=== PATIENT | male | born 2000 | race Caucasian/White ===

== ENCOUNTER 2021-04-23 18:23 | Observation (INO) ==
[2021-04-23 19:26] LABS: Basophils % 0.1 %; Eosinophils # 0.1 K/mcL (0.0-0.6); Eosinophils % 0.8 %; Hematocrit 46.8 % (37.5-50.1); Hemoglobin 16.3 g/dL (12.9-16.9); Immature Granulocytes % 0.7 % (0-4); Lymphocytes # 1.4 K/mcL (0.6-4.6); Lymphocytes % 10.6 %; Mean Corpuscular HGB Conc 34.8 g/dL (31.6-35.5); Mean Corpuscular Hemoglobin 31.8 pg (28.0-33.3); Mean Corpuscular Volume 91.2 fL (83.0-100.0); Mean Platelet Volume 9.5 fL (9.4-12.4); Monocytes # 1.3 K/mcL (0.0-1.3); Monocytes % 9.5 %; Neutrophils # 10.5 K/mcL (1.6-8.9); Platelet Count 222 K/mcL (140-400); Red Blood Count 5.13 M/mcL (4.19-5.50); Red Cell Distribution Width 12.1 % (11.5-14.5); Segmented Neutrophils % 78.3 %; White Blood Count 13.4 K/mcL (4.3-11.1)
[2021-04-23 19:29] LABS: Bilirubin,Urine Negative (Negative); Blood,Urine Negative (Negative); Clarity,Urine Clear (Clear); Color,Urine Light-Orange (Yellow); Glucose,Urine (UA) 70 mg/dL (Normal); Ketones,Urine Negative (Negative); Leukocyte Esterase,Urine Trace (Negative); Mucus,Urine Few per lpf (None-Few); Nitrite,Urine Negative (Negative); Protein,Urine 30 mg/dL (Neg-Trace); RBC,Urine 0-3 per hpf (0-3); Specific Gravity,Urine 1.026 (1.010-1.025); Sperm,Urine Present per hpf (None Seen); Squamous Epithelial Cell,Urine Few per hpf (None-Few); Urobilinogen,Urine Normal (Normal)
[2021-04-23 19:36] LABS: Amphetamine Screen,Urine Positive ng/mL (Cutoff=1000); Barbiturate Screen,Urine Negative ng/mL (Cutoff=200); Benzodiazepines Screen,Urine Negative ng/mL (Cutoff=200); Cannabinoid Screen,Urine Negative ng/mL (Cutoff = 50); Cocaine Screen,Urine Negative ng/mL (Cutoff= 300); Opiate Screen,Urine Negative ng/mL (Cutoff=300); Phencyclidine Screen,Urine Negative ng/mL (Cutoff=25)
[2021-04-23 19:47] LABS: Alanine Aminotransferase 32 Units/L (7-52); Albumin 4.5 g/dL (3.5-5.7); Albumin/Globulin Ratio 1.6 (1.1-2.2); Alkaline Phosphatase 68 Units/L (34-104); Aspartate Amino Transferase 21 Units/L (13-39); BUN/Creatinine Ratio 12 (6-26); Bilirubin,Direct 0.3 mg/dL (0.0-0.2); Bilirubin,Indirect 0.9 mg/dL (0.0-1.0); Bilirubin,Total 1.2 mg/dL (0.3-1.0); Blood Urea Nitrogen 9 mg/dL (6-20); Calcium 9.7 mg/dL (8.6-10.3); Carbon Dioxide 27 mEq/L (23-29); Chloride 99 mEq/L (98-107); Ethanol < 10 mg/dL (Less than 10); Globulin 2.8 g/dL (2.4-3.5); Glucose 108 mg/dL (70-105); Lipase 14 Units/L (11-82); Osmolality,Calculated 275 (280-300); Potassium 4.3 mEq/L (3.5-5.1); Sodium 133 mEq/L (136-145); Total Protein 7.3 g/dL (6.4-8.9); eGFR For African Americans > 60 (> 60); eGFR For Non-African Americans > 60 (> 60)
[2021-04-23] MEDS ORDERED: Ketorolac 15 MG/ML VIAL IVP ONE (19:52)
[2021-04-23] MEDS ORDERED: *HR* Metoprolol 5 MG/5 ML VIAL IVP PRN (23:03)
[2021-04-23] MEDS ORDERED: *HR* OxyCODONE/APAP 5/325 TABLET PO PRN (23:03)
[2021-04-24] MEDS: Piperacillin/Tazobactam 3.375 GM in 0.9 % Sodium Chloride Mini Bag 100 ML IVPB SCH ×3 (00:03→17:14)
[2021-04-24] MEDS: 0.9 % Sodium Chloride 1,000 ML IVC SCH ×4 (00:04→20:37)
[2021-04-24 01:15] LABS: Basophils % 0.2 %; Eosinophils # 0.1 K/mcL (0.0-0.6); Eosinophils % 0.8 %; Hematocrit 43.5 % (37.5-50.1); Hemoglobin 14.8 g/dL (12.9-16.9); Immature Granulocytes % 0.7 % (0-4); Lymphocytes # 1.5 K/mcL (0.6-4.6); Lymphocytes % 12.9 %; Mean Corpuscular Hemoglobin 31.2 pg (28.0-33.3); Mean Corpuscular Volume 91.8 fL (83.0-100.0); Mean Platelet Volume 9.8 fL (9.4-12.4); Monocytes # 1.1 K/mcL (0.0-1.3); Monocytes % 9.6 %; Neutrophils # 9.1 K/mcL (1.6-8.9); Platelet Count 194 K/mcL (140-400); Red Blood Count 4.74 M/mcL (4.19-5.50); Red Cell Distribution Width 12.2 % (11.5-14.5); Segmented Neutrophils % 75.8 %; White Blood Count 11.9 K/mcL (4.3-11.1)
[2021-04-24 01:36] LABS: Alanine Aminotransferase 63 Units/L (7-52); Albumin 3.9 g/dL (3.5-5.7); Albumin/Globulin Ratio 1.3 (1.1-2.2); Alkaline Phosphatase 75 Units/L (34-104); Amylase 14 Units/L (29-103); Aspartate Amino Transferase 64 Units/L (13-39); BUN/Creatinine Ratio 12 (6-26); Bilirubin,Direct 0.6 mg/dL (0.0-0.2); Bilirubin,Indirect 0.9 mg/dL (0.0-1.0); Bilirubin,Total 1.5 mg/dL (0.3-1.0); Blood Urea Nitrogen 9 mg/dL (6-20); Calcium 9.1 mg/dL (8.6-10.3); Carbon Dioxide 26 mEq/L (23-29); Chloride 99 mEq/L (98-107); Globulin 2.9 g/dL (2.4-3.5); Glucose 114 mg/dL (70-105); Lipase 7 Units/L (11-82); Osmolality,Calculated 278 (280-300); Potassium 4.1 mEq/L (3.5-5.1); Sodium 134 mEq/L (136-145); Total Protein 6.8 g/dL (6.4-8.9); eGFR For African Americans > 60 (> 60); eGFR For Non-African Americans > 60 (> 60)
[2021-04-24] MEDS ORDERED: Ondansetron 4 MG/2 ML VIAL IVP PRN ×3 (06:32→10:50)
[2021-04-24] MEDS ORDERED: *HR* HYDROmorphone PF 0.5 MG/0.5 ML SYRINGE IVP PRN (06:32)
[2021-04-24] MEDS ORDERED: Isovue-300 50ML VIAL ONE (07:21)
[2021-04-24] MEDS ORDERED: Lidocaine -MPF 4% 5 ML AMPUL ONE (07:47)
[2021-04-24] MEDS ORDERED: *HR* FentaNYL (PF) 100 MCG/2 ML VIAL ONE (07:47)
[2021-04-24] MEDS ORDERED: Lidocaine -MPF 2% 5 ML VIAL ONE (07:47)
[2021-04-24] MEDS ORDERED: *HR* Propofol 200 MG/20 ML VIAL IVP ONE (07:47)
[2021-04-24] MEDS ORDERED: Ondansetron 4 MG/2 ML VIAL ONE (07:47)
[2021-04-24] MEDS ORDERED: *HR* Succinylcholine 200 MG/10 ML VIAL IVP ONE (07:47)
[2021-04-24] MEDS ORDERED: *HR* Midazolam HCl 2 MG/2 ML VIAL ONE (07:47)
[2021-04-24] MEDS ORDERED: *HR* Rocuronium Bromide 50 MG/5 ML VIAL ONE (07:51)
[2021-04-24] MEDS ORDERED: Albuterol 2.5 MG/3 ML NEBULIZER ONE (08:13)
[2021-04-24] MEDS ORDERED: *HR* Magnesium Sulfate 1 GM/2 ML VIAL ONE (08:54)
[2021-04-24] MEDS ORDERED: *HR* HYDROMORPHONE 2 MG/ML VIAL ONE (08:58)
[2021-04-24] MEDS ORDERED: *HR* FentaNYL (PF) 100 MCG/2 ML VIAL IVP PRN (09:06)
[2021-04-24] MEDS ORDERED: Albuterol 2.5 MG/3 ML NEBULIZER IH PRN (09:06)
[2021-04-24] MEDS ORDERED: Nitroglycerin 0.4 MG TAB.SUBL SL PRN (09:06)
[2021-04-24] MEDS ORDERED: Naloxone 0.4 MG/ML INJ IVP PRN ×2 (09:06→10:50)
[2021-04-24] MEDS ORDERED: Ketorolac 30 MG/ML VIAL ONE (09:25)
[2021-04-24] MEDS ORDERED: Sugammadex Sodium 200 MG/2 ML VIAL IV ONE (09:31)
[2021-04-24] MEDS ORDERED: Ringers Solution, Lactated 1,000 ML ONE (10:18)
[2021-04-24] MEDS ORDERED: *HR* OxyCODONE/APAP 5/325 TABLET PO PRN (10:50)
[2021-04-24] MEDS: Ketorolac 15 MG/ML VIAL IVP SCH ×2 (15:34→19:02)
[2021-04-24] MEDS: Nicotine 21 MG PATCH.TD24 TD SCH (17:14)
[2021-04-25] MEDS: Piperacillin/Tazobactam 3.375 GM in 0.9 % Sodium Chloride Mini Bag 100 ML IVPB SCH ×2 (00:12→09:15)
[2021-04-25] MEDS: Ketorolac 30 MG/ML VIAL IVP SCH ×3 (00:12→12:47)
[2021-04-25] MEDS: 0.9 % Sodium Chloride 1,000 ML IVC SCH (05:42)
[2021-04-25 06:17] LABS: Basophils % 0.1 %; Eosinophils % 0.1 %; Hematocrit 38.8 % (37.5-50.1); Hemoglobin 13.4 g/dL (12.9-16.9); Lymphocytes # 1.2 K/mcL (0.6-4.6); Lymphocytes % 13.1 %; Mean Corpuscular HGB Conc 34.5 g/dL (31.6-35.5); Mean Corpuscular Hemoglobin 31.8 pg (28.0-33.3); Mean Corpuscular Volume 91.9 fL (83.0-100.0); Mean Platelet Volume 9.8 fL (9.4-12.4); Monocytes # 0.7 K/mcL (0.0-1.3); Monocytes % 7.2 %; Neutrophils # 7.2 K/mcL (1.6-8.9); Platelet Count 222 K/mcL (140-400); Red Blood Count 4.22 M/mcL (4.19-5.50); Red Cell Distribution Width 12.2 % (11.5-14.5); Segmented Neutrophils % 78.5 %; White Blood Count 9.2 K/mcL (4.3-11.1)
[2021-04-25 06:55] VITALS: O2SAT 99
[2021-04-25] MEDS: Nicotine 21 MG PATCH.TD24 TD SCH (09:17)
[2021-04-25 10:45] VITALS: BP 126/77; PULSE 95; TEMP 98
== END 2021-04-25 13:51 | disposition home or self-care (01) ==
LOC: EMEROOARM 18:23 → 3BNU 18:23
PROVIDERS: ADMIT Surgery; ATTEND Surgery